=== PATIENT | female | born 1970 | race Caucasian/White ===

== ENCOUNTER 2024-10-23 08:45 | Observation (INO) ==
--- NOTE | 2024-09-25 13:14 | PAT Medication Instructions ---
Medication Instructions Date of Service September 25, 2024 Home Medications Medication Instructions Recorded celecoxib 200 mg capsule 200 mg PO DAILY PRN pain #30 caps 04/11/24 nuvoflex 1 tab PO QAM celecoxib 200 mg capsule 200 mg PO DAILY PRN pain famotidine 20 mg tablet (Pepcid) 20 mg PO QAM Wiodwam 1 tab PO DAILY garlic 500 mg PO DAILY lidocaine 5 % topical ointment 1 applic topical DAILY knees multivitamin 1 tab PO DAILY brayden d arco 100 mg capsule 400 mg PO DAILY vitamin E 30 unit capsule 30 unit PO DAILY Continue as directed lidocaine 5 % topical ointment 1 applic topical DAILY knees (avoid placement near surgery site prior to surgery) ASK your surgeon for instructions celecoxib 200 mg capsule 200 mg PO DAILY PRN pain STOP taking 2 weeks before surgery (or as soon as possible if surgery is within 2 weeks) nuvoflex 1 tab PO QAM garlic 500 mg PO DAILY brayden d arco 100 mg capsule 400 mg PO DAILY vitamin E 30 unit capsule 30 unit PO DAILY DO NOT take the morning of surgery multivitamin 1 tab PO DAILY Take morning of surgery With a small sip of water, OTHERWISE NOTHING TO EAT OR DRINK AFTER MIDNIGHT: famotidine 20 mg tablet (Pepcid) 20 mg PO QAM Further instructions to be provided at PAT visit: Wiodwam 1 tab PO DAILY Other Notes If you have any questions please call us at [phone] or [phone] or [phone] or [phone]
--- NOTE | 2024-10-03 08:19 | Anesthesiology Consultation ---
Date of Service October 03, 2024 Assessment & Plan (1) Encounter for pre-operative examination: - Infectious disease screening: Per assessment on 10/03/24- No known recent infectious disease contacts or current infectious disease symptoms. - Outpatient joint assessment: Pt currently scheduled for inpatient pathway. If surgeon requests review for outpatient joint pathway, patient is not recommended candidate for outpatient joint program from anesthesia standpoint based on available information. - PCP visit (08/20/24): "For the right worse than left knee osteoarthritis you are to have surgery by Dr. Mulligan on October 23.. If you are EKG, chest x-ray, and blood work are normal there are no contraindications to proceeding with surgery .. You find that lidocaine cream helps your knee pain. I called in a prescription to the [facility] pharmacy.. Stop the Celebrex a week before your surgery. Also, do not take aspirin, Motrin, Advil, Aleve, ibuprofen, naproxen sodium, and other nonsteroidal anti-inflammatory or NSAID medications for a week before surgery. It is okay to take the acetaminophen or Tylenol 500 mg, 2 pills up to 3 times daily up till the time of surgery.. I would take the Pepcid or famotidine with a small sip of water the morning of surgery.. Ears are blocked with wax. Will have nursing flush them both out today." > Preop labs, EKG, CXR performed 10/03/24; unremarkable. Chart Review Chart Review: Acceptable Risk for Surgery and Patient seen in Pre Admission Testing Teaching & Discussion Pre-Anesthesia Teaching/Discussion Notes: Instructed NPO after midnight before surgery,except medications with 15 cc of water. Medication instructions provided according to the PAT guidelines. History Surgery Operation Date: 10/23/24 08:50 Proposed Procedures p Right Total Knee Arthroplasty - Audi Mulligan MD Height/Weight Height: 5 ft 2 in Weight: 90.6 kg Allergies Allergy/AdvReac Type Severity Reaction Status Date / Time amoxicillin [From Augmentin] AdvReac Severe Abdominal Verified 09/24/24 15:00 Pain clavulanic acid AdvReac Severe Abdominal Verified 09/24/24 15:00 [From Augmentin] Pain Medications Home Medications Medication Instructions Recorded Confirmed Last Taken nuvoflex 1 tab PO QAM 03/21/24 09/24/24 Unknown celecoxib 200 mg capsule 200 mg PO DAILY PRN pain #30 caps 04/11/24 09/24/24 U nknown famotidine 20 mg tablet (Pepcid) 20 mg PO QAM 08/20/24 09/24/24 Unknown garlic 500 mg PO DAILY 09/24/24 09/24/24 Unknown lidocaine 5 % topical ointment 1 applic topical DAILY knees 09/24/24 09/24/24 Unknown multivitamin 1 tab PO DAILY 09/24/24 09/24/24 Unknown brayden d arco 100 mg capsule 400 mg PO DAILY 09/24/24 09/24/24 Unknown vitamin E 30 unit capsule 30 unit PO DAILY 09/24/24 09/24/24 Unknown wild yam 1 tab PO DAILY 10/03/24 10/03/24 Unknown Past Medical History Medical History GERD (gastroesophageal reflux disease) "Sensitive stomach" especially with pain medications Osteoarthritis of knees, bilateral Otomycosis of right ear Treated, ENT monitoring Seizure Age 18 (none since), felt to be medication reaction No seizures since Exercise / Class Metabolic Activity III < 4 Walking/Shop/Light housework Past Surgical History Surgical History No pertinent past surgical history Past Anesthesia History No Hx of Anesthesia Complications and No Family Hx of Anesthesia Complications History of PONV No Hx of PONV and No Hx of Motion Sickness Social History Smoking Status: Never smoker Do You Dip or Chew Tobacco: No Hx Alcohol Use: No Hx Substance Use: No substance use type: does not use Review of Systems Patient denies chest pain, shortness of breath, fever, chills, cough, wheezing. Physical Exam Vital Signs BP 112/68 P 67 TEMP 97.8 SP02 95%RA RESP 18 Physical Decreased cervical extension range of motion. Full TMJ range of motion. TMD > 3.5 finger breaths Mallampati Score III Dentition: full upper/lower dentures Lungs: clear throughout to auscultation Cardiac: regular rate and rhythm, no murmurs noted Spine: normal Carotid arteries: negative bruit Extremities: non-pitting LE edema Short neck Lab Results Anesthesia Preop Results Results Anesthesia Widget: WBC 7.37 K/ul (4.8-10.8) 10/03/24 Hgb 14.4 g/dl (12.0-16.0) 10/03/24 Hct 42.4 % (37.0-47.0) 10/03/24 Plt 222 K/uL (130-400) 10/03/24 Na 140 mmol/L (136-145) 10/03/24 K 4.3 mmol/L (3.5-5.1) 10/03/24 Cl 105 mmol/L (98-107) 10/03/24 CO2 29 mmol/L (21-32) 10/03/24 BUN 14 mg/dl (6-23) 10/03/24 Creat 0.70 mg/dl (0.6-1.2) 10/03/24 Glucose Level 91 mg/dl (70-99(Fasting)) 10/03/24 PT 10.6 Seconds (9.0-12.0) 10/03/24 PTT 29 Seconds (21-31) 10/03/24 INR 1.0 (0.9-1.1) 10/03/24 Blood Type O Positive 10/03/24 Antibody Screen NEGATIVE 10/03/24 Testing Electrocardiogram Date: 10/03/24 NSR at 61bpm. "Normal ECG" Chest X-Ray Date: 10/03/24 Findings: The lungs are clear. The cardiomediastinal silhouette is within nor mal limits. No pleural effusion or pneumothorax. The heart size appears normal. No bony or soft tissue abnormality. Impression: Normal chest x-ray
--- NOTE | 2024-10-16 16:58 | History & Physical Report ---
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 Her disease has progressed markedly over the past year the fact that she is hardly getting around even with a cane. She would like to have her knees fixed. Plan will get and proceed with right knee replacement. The risks and benefits of this procedure were explained. Informed consent was obtained. Sustained hospital overnight and likely discharge postoperative day 1. Will use aspirin for DVT prophylaxis. (2) GERD (gastroesophageal reflux disease): (3) Seizure: History of Present Illness Chief Complaint: . Bilateral knee pain discomfort right side greater than left. Primary Care Provider: Ross Figueroa MD . The patient is a 54-year-old female [facility] patient from [place] who presents for treatment of her knees. About a 1 year history of markedly increasing bilateral knee pain discomfort has gotten quite a bit worse fairly quickly. He has been seen and treated with conservative management with minimal relief. Pain has become more more debilitating. She is resorted to using a cane to get around for the past couple months. No known injury. She is open to have her knees fixed. Allergies Allergy/AdvReac Type Severity Reaction Status Date / Time amoxicillin [From Augmentin] AdvReac Severe Abdominal Verified 09/24/24 15:00 Pain clavulanic acid AdvReac Severe Abdominal Verified 09/24/24 15:00 [From Augmentin] Pain Home Medications Medication Instructions Recorded Confirmed Type nuvoflex 1 tab PO QAM 03/21/24 09/24/24 History celecoxib 200 mg capsule 200 mg PO DAILY PRN pain #30 caps 04/11/24 09/24/24 Rx famotidine 20 mg tablet (Pepcid) 20 mg PO QAM 08/20/24 09/24/24 History garlic 500 mg PO DAILY 09/24/24 09/24/24 History lidocaine 5 % topical ointment 1 applic topical DAILY knees 09/24/24 09/24/24 History multivitamin 1 tab PO DAILY 09/24/24 09/24/24 History brayden d arco 100 mg capsule 400 mg PO DAILY 09/24/24 09/24/24 History vitamin E 30 unit capsule 30 unit PO DAILY 09/24/24 09/24/24 History wild yam 1 tab PO DAILY 10/03/24 10/03/24 History Past Med/Surg History Problem List Encounter for pre-operative examination Osteoarthritis of knees, bilateral Medical History GERD (gastroesophageal reflux disease) "Sensitive stomach" especially with pain medications Osteoarthritis of knees, bilateral Otomycosis of right ear Treated, ENT monitoring Seizure Age 18 (none since), felt to be medication reaction No seizures since Surgical History No pertinent past surgical history Social History Smoking Status: Never smoker Second Hand Exposure: No; Do You Dip or Chew Tobacco: No; Hx Alcohol Use: No Hx Substance Use: No Preferred Language: Greenlandic Communication Ability: Effective Visual Impairment: No Limitations Hearing Ability: Normal Water Conservation Specialist Required: No Beliefs That Will Affect Care: None Current Living Situation: Family Current Living Situation Comment: lives with sisters and dad Feels Safe at Home: Yes Diet: regular Assistive Devices: Denture - Upper, Denture - Lower and Glasses Review of Systems All systems reviewed & are unremarkable except as noted in HPI & below. Physical Exam . Physical examination reveals a pleasant middle-age female. She little looks a little bit older than her stated age. Examination of both knees reveal patient walks with a markedly antalgic gait. She walks keeping her knees fairly straight in kline when she walks. She uses a cane to ambulate. Examination of the right knee reveals neutral to slight varus alignment to her knee. Moderate soft tissue envelope. Range of motion 5 5-1 10. No instability. No pain with hip motion. Examination left knee reveals fairly neutral alignment. Moderate soft tissue envelope. Minimal knee effusion. Range of motion is 5-1 15. She is neurologically intact. Constitutional WD/WN, vitals as above Respiratory normal respiratory effort, lungs clear to auscultation Cardiovascular RRR, no murmur, no edema Gastrointestinal (Abdomen) normal bowel sounds, soft, nontender, no hepatosplenomegaly Results & Data Results & Data Laboratory Results . Diagnostic Findings . X-rays of both knees were reviewed. She has advanced bilateral knee DJD. 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 The right side is a bit worse than the left. PG Care Time/CCT Total # of Minutes Spent Total Time Spent with Patient: Total time spent is greater than 50% in coordination of care (as documented) at patient's floor/unit and/or counseling patient: Coding Level of Care Code None Diagnoses Osteoarthritis of knees, bilateral M17.0 GERD (gastroesophageal reflux disease) K21.9 Seizure R56.9
[~2024-10-23 08:45] MED LIST: BUPIVACAINE 0.5 % 5 MG/1 ML PF 10ML VIAL ONE; ROPIVACAINE 0.5% 5 MG/ML 30 ML VIAL ONE
--- NOTE | 2024-10-23 09:01 | History & Physical Bridge Note ---
Date of Service October 23, 2024 History & Physical Bridge Note I have examined the patient, reviewed the History & Physical and in the interval since the performance of the History & Physical I have noted the following changes of clinical significance: no changes noted
[2024-10-23] MEDS: LR 15ML/HR IV SCH (09:18)
[2024-10-23] MEDS: CeleBREX 200 MG CAP PO SCH (09:19)
[2024-10-23] MEDS: FAMOTIDINE 20 MG TAB PO SCH (09:19)
[2024-10-23] MEDS: dexAMETHasone**PF** 10 MG/ML VIAL IV SCH (09:19)
[2024-10-23] MEDS: ACETAMINOPHEN 500 MG TAB PO SCH ×2 (09:19→15:43)
[2024-10-23] MEDS: METOCLOPRAMIDE HCL 10 MG TABLET PO SCH (09:20)
[2024-10-23] MEDS: LR 500ML BOLUS, THEN 15ML/HR IV SCH (09:20)
[2024-10-23] MEDS ORDERED: MIDAZOLAM HCL 1 MG/ML 2ML VIAL ONE ×2 (10:44→12:19)
[2024-10-23] MEDS ORDERED: fentaNYL citrate PF 100 MCG/2 ML VIAL ONE (10:44)
[2024-10-23] MEDS: ceFAZolin 2000MG 2,000 MG/15 ML SYR IV SCH ×2 (11:37→20:43)
[2024-10-23] MEDS ORDERED: PROPOFOL IV EMULSION 10 MG/ML 20 ML VIAL IV ONE (12:10)
[2024-10-23] MEDS ORDERED: ePHEDrine sulfate 50 MG/5 ML SYR ONE (12:10)
[2024-10-23] MEDS: ORTHO JOINT ANESTHETIC ONE (12:14)
[2024-10-23] MEDS: ROPIV 0.5% 246mg, Ketorolac 30mg, EPINEPHrine 0.5mg in NSS INFIL SCH (12:14)
[2024-10-23] MEDS: TRANEXAMIC ACID 1,000 MG **IV Intra-op IV SCH (12:28)
--- NOTE | 2024-10-23 13:27 | Operative Report ---
PG Post Operative Report Pre & Post Diagnosis Operation Date: 10/23/24 10:40 Pre-Op Diagnosis: Right Knee Osteoarthritis Post-Op Diagnosis: Right Knee Osteoarthritis I identified the patient and participated in the time-out.: Yes Procedure Operation Date: 10/23/24 10:40 Actual Procedures p Right Total Knee Arthroplasty(Right) - Audi Mulligan MD Surgeon Audi Mulligan MD Web Site Administrator Blas Garcia PA-C Estimated Blood Loss 50 Findings Consistent with Post-Op Diagnosis Operative findings were advanced right knee DJD. She had extensive grade 4 [id number] disease in all 3 compartments most severe medially. It did looks like she had significant a vast necrosis and collapse of her medial femoral condyle. Very stiff knee preoperatively with a flexion contracture of about 10 degrees and only bent about 85. Specimens Right knee sent for pathology. Anesthesia Type Spinal MAC Complications none Disposition Accompanied Patient To Recovery: No Indications The patient is a 54-year-old [employer] female who has a several year history of increasing right knee pain and discomfort that got markedly worse over the past year. She failed all conservative measures. X-rays show advanced bilateral knee DJD. She would like proceed with surgical treatment. Description of Procedure Operative implants consist of: 1. Biomet Vanguard size 65 right posterior stabilized femoral component. 2. Biomet size 67 tibial tray. 3. 10 mm posterior stabilized polyethylene insert. 4. 31 x 8 all poly patella. The patient was taken to the operating, identified, placed on the operating table in the supine position. All contact areas were appropriately padded. IV antibiotics arrived by anesthesia team. Spinal anesthetic and adductor canal block had been Weida in the holding area. A Sandy catheter was placed in sterile fashion. A right thigh tourniquet was then placed. The right lower extremity was then prepped and draped in usual sterile fashion. The right leg was elevated and exsanguinated with use of an Esmarch and a turn was placed at 300 mmHg. An anterior approach of the right knee was then performed to longitudinal incision centered over the patella. Sharp dissection was carried through subcutaneous tissue down the extensor mechanism. A medial parapatellar arthrotomy incision was made. Some subperiosteal dissection was carried out medially. The fat pad was dissected from the patella tendon. The lateral patellofemoral ligament was released. Patella subluxated laterally and the knee was flexed. The osteophytes taken off distal femur. The ACL and PCL then released from the distal femur and the tibia subluxated anteriorly. The external treatment LYMErix then placed on the anterior face of the tibia and adjusted 14 mm medially. Proximal tibial cut was made remove about a millimeter bone from the medial side. Some osteophytes taken off medially. The tibia sized to a size 67. Attention drawn the femur. The distal femur examined with a sharp drill. Intramedullary canal was suction. The right 5 degree valgus cutting guide was placed. The distal femoral cutting block was pinned in place. This femoral cut was made to take an additional 3 mm of bone off distal femur. The femur was then sized to a size 65. The AP cutting block was pinned parallel to the epicondylar axis which was 3 degrees of external rotation. Anterior cut, anterior chamfer, posterior cut, posterior chamfer cuts were made. The box cutting guide was placed and just slightly lateral and the box cut was made. The knee was flexed. The remnants of the medial and lateral menisci were excised. The osteophytes were taken off the posterior aspect of the femur. A trial femoral component was placed. The tibial tray was pinned in Rachel external rotation and the drill and stem punch were used to create defect in proximal tibia for the tibial tray. The knee was then trialed and the 10 mm insert fit most appropriately. Attention drawn the patella. The patella was cleaned of all soft tissues. Patella thickness measured by 18 mm in thickness was cut down to 13. Was sized to a size 31 patella. The lug holes were drilled for 31 patella. The lateral osteophytes removed. Patella button was placed. Knee was taken through range of motion and patella tracked nicely with no thumbs test. Attention drawn to placement permanent components. NuPrep all trial components were removed. A bone plug was placed into the distal femur limb of blood loss. A double batch Palacos G cement was mixed. A Biomet Vanguard size 65 right posterior stabilized femoral component, size 67 tibial tray, a 10 mm posterior stabilized polyethylene insert, and a 31 x 8 all poly patella then cemented in place. The knee was brought out into full extension till cement hardened. Final cement check was then performed. The pericapsular tissues were injected with total 100 cc of Ortho mix. The patient did receive 1 g tranexamic acid. The tourniquet was then let down for final tourniquet time 55 minutes. Hemostasis surgeries electrocautery. Extensor Metros then closed with combination 1 PDS suture #1 Vicryl suture in [id number] fashion. Extensor Meclomen checked found to be intact. Subcutaneous tissue then closed with 2 Dexon suture in a buried interrupted fashion skin was closed skin rhianna. Leg was then cleaned and dried and sterile dressed with Xeroform, 4 fours, sterile cast padding, Hardeep bandage were applied. The patient then transferred to the recovery room in stable condition. The patient tolerated procedure well and there were no complications. Blas Garcia, my physician portfolio assistant, was present for the entire procedure. His assistance was essential and required for appropriate patient positioning, prepping and draping, surgical exposure, performing the technical details of the operation, placement the implants, closure of the wound, and placement of the sterile bandage. I attest to the content of the Intraoperative Record and any orders documented therein. Any exceptions are noted below.
--- NOTE | 2024-10-23 13:36 | XRay Report ---
XR knee RT 1 or 2V routine CLINICAL HISTORY: Surgical Post Op COMPARISON: None FINDINGS: Right knee prosthesis shows no hardware complication. There is expected soft tissue gas. S kin rhianna are present. IMPRESSION: Unremarkable postoperative exam. ACT 112: Negative or not required by law. Electronically signed by: Johnny Hernandez M.D. 10/23/2024 1:35 PM
--- NOTE | 2024-10-23 13:50 | Anesthesiology Progress Note ---
Date of Service October 23, 2024 Anesthesia Post Procedure Vital Signs Vital Signs: Temp Pulse Resp BP Pulse Ox O2 Del Method 10/23/24 13:40 70 16 124/60 92 Room Air 10/23/24 13:30 71 15 121/67 96 Room Air 10/23/24 13:21 36.1 C L 82 16 124/63 99 Room Air 10/23/24 09:08 37.1 C 73 20 132/93 97 Room Air Notes Mental Status: alert / awake / arousable Patient Amnestic to Procedure: Yes Nausea / Vomiting: adequately controlled Pain: adequately controlled Airway Patency, RR, SpO2: stable & adequate BP & HR: stable & adequate Hydration State: stable & adequate Neuraxial Anesthesia: was administered and sensory block is resolving Anesthetic Complications: no major complications apparent
[2024-10-23] MEDS ORDERED: ALUMINUM/MAGNESIUM SUSP 30 ML UDC PO PRN (14:20)
[2024-10-23] MEDS ORDERED: oxyCODONE HCL IR 5 MG TAB (IMMEDIATE RELEASE) PO PRN (14:20)
[2024-10-23] MEDS ORDERED: NALOXONE HCL 0.4 MG/1 ML VIAL/CARP IV PRN (14:20)
[2024-10-23] MEDS ORDERED: MAGNESIUM HYDROXIDE SUSP 30 ML UDC PO PRN (14:20)
[2024-10-23] MEDS ORDERED: bisacodyL 10 MG SUPP PR PRN (14:20)
[2024-10-23] MEDS ORDERED: METOCLOPRAMIDE HCL INJ 5 MG/ML 2 ML VIAL IV PRN (14:20)
[2024-10-23] MEDS ORDERED: diphenhydrAMINE Capsule 25 MG CAP PO PRN (14:20)
[2024-10-23] MEDS ORDERED: HYDROmorphone INJ 0.5 MG/0.5 ML SYR IV PRN (14:20)
[2024-10-23] MEDS ORDERED: ONDANSETRON INJ 2 MG/ML 2 ML VIAL IV PRN (14:20)
[2024-10-23] MEDS: SODIUM CHLORIDE 0.9% 1,000 ML IV SCH (14:48)
[2024-10-23] MEDS: KETOROLAC 30 MG/ML VIAL IV SCH (15:44)
[2024-10-23] MEDS: ASCORBIC ACID 500 MG TAB PO SCH (17:28)
[2024-10-23] MEDS: TRANEXAMIC ACID / 0.7% NACL 1,000 MG/100 ML BAG IV SCH (20:43)
[2024-10-23] MEDS: DOCUSATE SODIUM 100 MG CAP PO SCH (20:43)
[2024-10-23] MEDS: SENNA 8.6 MG TAB PO SCH (20:44)
[2024-10-23] MEDS: ASPIRIN 81 MG ECTAB PO SCH (20:44)
[2024-10-23] MEDS ORDERED: SENNA 8.6 MG TAB PO SCH (21:00)
[2024-10-24 05:54] LABS: Hematocrit (blood only) 38.2 % (37.0-47.0); Mean Corpuscular Hemoglobin 29.8 pg (25.0-34.0); Mean Corpuscular Volume 87.6 fL (80.0-100.0); Mean Platelet Volume 10.3 fL (9.4-12.4); Platelet Count 260 K/uL (130-400); RDW Coefficient of Variation 12.1 % (11.5-14.5); RDW Standard Deviation 38.7 fL (36.4-46.3); Red Blood Count 4.36 M/uL (4.20-5.40); White Blood Count 15.74 K/ul (4.8-10.8)
[2024-10-24 06:12] LABS: BUN Creatinine Ratio 23.3 (10-20); Calcium 8.4 mg/dl (8.6-10.3); Creatinine Clr Calc Pharmacy 61.1 ml/min; Potassium 4.1 mmol/L (3.5-5.1)
[2024-10-24 07:14] VITALS: BP 104/65; PULSE 70; RESP 16; TEMP 97.5; O2SAT 97
--- NOTE | 2024-10-24 08:27 | Orthopedic Progress Note ---
Date of Service October 24, 2024 Assessment & Plan (1) Status post total right knee replacement: * Continue Current Treatment * Disposition: home * Daily treatment: Physical Therapy/ Occupational Therapy per protocol * Weight bearing status: WBAT * Continue to monitor for ABLA * Pain control * DVT prophylaxis, ASA * Office/hospital f/u 2 weeks for progress check and staple/suture removal * Plan for discharge today pending PT/OT clearance Subjective .Active Problems: S/p right TKA 54 y/o female s/p right TKA. Doing well overall, pain managed and improved function. Denies fever/chills, chest pain/SOB, nausea/vomiting. Otherwise no complaints. Review of Systems All systems reviewed & are unremarkable except as noted in HPI & below. Physical Exam . right knee surgical dressing CDI, not removed for exam. Otherwise no obvious deformity or overlying skin changes RLE. Diffuse TTP distal thigh and knee region. Otherwise no specific tenderness of proximal thigh, lower leg, foot/ankle. AROM knee flexion 0-100 degrees. AROM foot/ankle intact. Sensation intact plantar/dorsal foot. Brisk capillary refill. Results & Data Results & Data Laboratory Results . Diagnostic Findings . Knee X-Ray 10/23/24 13:20 XR knee RT 1 or 2V routine CLINICAL HISTORY: Surgical Post Op COMPARISON: None FINDINGS: Right knee prosthesis shows no hardware complication. There is expe cted soft tissue gas. Skin rhianna are present. IMPRESSION: Unremarkable postoperative exam. ACT 112: Negative or not required by law. Electronically signed by: Johnny Hernandez M.D. 10/23/2024 1:35 PM PG Care Time/CCT Total # of Minutes Spent Total Time Spent with Patient: Total time spent is greater than 50% in coordination of care (as documented) at patient's floor/unit and/or counseling patient: Coding Level of Care Code 00972 Post Operative Follow-Up Diagnoses Status post total right knee replacement Z96.651
[2024-10-24] MEDS: dexAMETHasone 10 MG in SYRINGE 0 ML IV SCH (08:59)
[2024-10-24] MEDS: MULTIVITAMIN TAB PO SCH (09:00)
[2024-10-24] MEDS ORDERED: NON-FORMULARY MEDICATION (Garlic Capsule) PO SCH (09:00)
[2024-10-24] MEDS ORDERED: PAU D ARCO PO SCH (09:00)
[2024-10-24] MEDS: FAMOTIDINE 20 MG TAB PO SCH (09:00)
[2024-10-24] MEDS: TOCOPHERYL, DL-ALPHA 100 UNITS 45 MG CAP PO SCH (09:00)
[2024-10-24] MEDS ORDERED: NON-FORMULARY MEDICATION (Multivitamin Tablet) PO SCH (09:00)
[2024-10-24] MEDS ORDERED: [UNRECOGNIZED DRUG - OTHER] PO SCH (09:00)
[2024-10-24] MEDS ORDERED: [UNRECOGNIZED DRUG - OTHER] PO SCH (09:00)
[2024-10-24] MEDS: LIDOCAINE 5% OINT 30 GM TUBE TOP SCH (09:00)
== END 2024-10-24 12:55 | disposition home health service (06) ==
LOC: 3E 08:45 → ASU 08:45

== ENCOUNTER 2025-02-12 11:12 | Observation (INO) ==
--- NOTE | 2025-01-16 12:58 | PAT Medication Instructions ---
Medication Instructions Date of Service January 16, 2025 Home Medications Medication Instructions Recorded celecoxib 200 mg capsule 200 mg PO BID PRN pain #60 caps 11/26/24 nuvoflex 1 tab PO QAM famotidine 20 mg tablet (Pepcid) 20 mg PO QAM garlic 500 mg PO DAILY lidocaine 5 % topical ointment 1 applic topical DAILY knees multivitamin 1 tab PO DAILY brayden d arco 100 mg capsule 400 mg PO DAILY vitamin E 30 unit capsule 30 unit PO DAILY wild yam 1 tab PO DAILY celecoxib 200 mg capsule 200 mg PO BID PRN pain fish, borage, flaxseed oils-omega 3,6,9 comb no.1 1,200 mg capsule (Hanska 3-6-9) 1 cap PO QPM ASK your surgeon for instructions celecoxib 200 mg capsule 200 mg PO BID PRN pain STOP taking 2 weeks before surgery (or as soon as possible if surgery is within 2 weeks) nuvoflex 1 tab PO QAM garlic 500 mg PO DAILY brayden d arco 100 mg capsule 400 mg PO DAILY vitamin E 30 unit capsule 30 unit PO DAILY wild yam 1 tab PO DAILY fish, borage, flaxseed oils-omega 3,6,9 comb no.1 1,200 mg capsule (Hanska 3-6-9) 1 cap PO QPM STOP taking 24 hours before surgery lidocaine 5 % topical ointment 1 applic topical DAILY knees DO NOT take the morning of surgery multivitamin 1 tab PO DAILY Take morning of surgery With a small sip of water, OTHERWISE NOTHING TO EAT OR DRINK AFTER MIDNIGHT: famotidine 20 mg tablet (Pepcid) 20 mg PO QAM Other Notes If you have any questions please call us at [phone] or [phone] or [phone] or [phone]
--- NOTE | 2025-01-22 08:31 | Anesthesiology Consultation ---
Date of Service January 22, 2025 Assessment & Plan (1) Encounter for pre-operative examination: - Check test DOS - Infectious disease screening: Per assessment on 01/22/25- No known recent infectious disease contacts or current infectious disease symptoms. - Outpatient joint assessment: Pt currently scheduled for inpatient pathway. If surgeon requests review for outpatient joint pathway, patient is not a recommended candidate for outpatient joint program from anesthesia standpoint based on available information. - PCP visit (08/20/24): "For the right worse than left knee osteoarthritis you are to have surgery by Dr. Mulligan on October 23.. If you are EKG, chest x-ray, and blood work are normal there are no contraindications to proceeding with surgery.. You find that lidocaine cream helps your knee pain. I called in a prescription to the the [facility].. Stop the Celebrex a week before your surgery. Also, do not take aspirin, Motrin, Advil, Aleve, ibuprofen, naproxen sodium, and other nonsteroidal anti-inflammatory or NSAID medications for a week before surgery. It is okay to take the acetaminophen or Tylenol 500 mg, 2 pills up to 3 times daily up till the time of surgery.. I would take the Pepcid or famotidine with a small sip of water the morning of surgery.. Ears are blocked with wax. Will have nursing flush them both out today." > Preop labs, EKG, CXR performed 10/03/24; unremarkable. - S/P Right TKA (10/23/24): SAB at L3-4 (1 attempt) + regional, [facility]. No issues noted per post-op anesthesia progress note. Chart Review Chart Review: Acceptable Risk for Surgery and Patient seen in Pre Admission Testing Teaching & Discussion Pre-Anesthesia Teaching/Discussion Notes: Instructed NPO after midnight before surgery,except medications with 15 cc of water. Medication instructions p rovided according to the PAT guidelines. History Surgery Operation Date: 02/12/25 10:40 Proposed Procedures p Left Total Knee Arthroplasty - Audi Mulligan MD Height/Weight Height: 5 ft 2 in Weight: 93.3 kg Allergies Allergy/AdvReac Type Severity Reaction Status Date / Time amoxicillin [From Augmentin] AdvReac Severe Abdominal Verified 01/15/25 15:07 Pain clavulanic acid AdvReac Severe Abdominal Verified 01/15/25 15:07 [From Augmentin] Pain Medications Home Medications Medication Instructions Recorded Confirmed Last Taken nuvoflex 1 tab PO QAM 03/21/24 01/15/25 10/09/24 famotidine 20 mg tablet (Pepcid) 20 mg PO QAM 08/20/24 01/15/25 10/23/24 05:30 garlic 500 mg PO DAILY 09/24/24 01/15/25 10/09/24 lidocaine 5 % topical ointment 1 applic topical DAILY knees 09/24/24 01/15/25 10/21/24 multivitamin 1 tab PO DAILY 09/24/24 01/15/25 10/09/24 brayden d arco 100 mg capsule 400 mg PO DAILY 09/24/24 01/15/25 10/09/24 vitamin E 30 unit capsule 30 unit PO DAILY 09/24/24 01/15/25 10/09/24 wild yam 1 tab PO DAILY 10/03/24 01/15/25 10/09/24 celecoxib 200 mg capsule 200 mg PO BID PRN pain #60 caps 11/26/24 01/15/25 Unknown fish, borage, flaxseed oils-omega 1 cap PO QPM 01/15/25 01/15/25 Unknown 3,6,9 comb no.1 1,200 mg capsule ([place] 3-6-9) Past Medical History Medical History GERD (gastroesophageal reflux disease) "Sensitive stomach" especially with pain medications Osteoarthritis of knees, bilateral Otomycosis of right ear Treated, ENT monitoring PRN drops (not currently using per patient) Seizure Age 18 (none since), felt to be medication reaction No seizures since Exercise / Class Metabolic Activity III < 4 Walking/Shop/Light housework Past Family History Family History Sister Family history of reaction to anesthesia nausea/vomiting Past Surgical History Surgical History History of total right knee replacement (10/23/24) SAB at L3-4 (1 attempt) + regional, [facility] Past Anesthesia History No Hx of Anesthesia Complications and No Family Hx of Anesthesia Complications (except sister with PONV) History of PONV No Hx of PONV and No Hx of Motion Sickness Social History Smoking Status: Never smoker Do You Dip or Chew Tobacco: No Hx Alcohol Use: No Hx Substance Use: No substance use type: does not use Review of Systems Patient denies chest pain, shortness of breath, fever, chills, cough, wheezing, palpitations. Physical Exam Vital Signs BP 110/68 P 73 TEMP 98.2 SP02 97%RA RESP 16 Physical Decreased cervical extension range of motion. Full TMJ range of motion. TMD > 3.5 finger breaths Mallampati Score III Dentition: upper/lower full dentures Lungs: clear throughout to auscultation Cardiac: regular rate and rhythm, no murmurs noted Spine: normal Carotid arteries: negative bruit Extremities: trace non-pitting LE edema Lab Results Anesthesia Preop Results Results Anesthesia Widget: WBC 6.50 K/ul (4.8-10.8) 01/22/25 Hgb 14.3 g/dl (12.0-16.0) 01/22/25 Hct 41.6 % (37.0-47.0) 01/22/25 Plt 228 K/uL (130-400) 01/22/25 Na 139 mmol/L (136-145) 01/22/25 K 4.2 mmol/L (3.5-5.1) 01/22/25 Cl 104 mmol/L (98-107) 01/22/25 CO2 30 mmol/L (21-32) 01/22/25 BUN 16 mg/dl (6-23) 01/22/25 Creat 0.58 mg/dl (0.6-1.2) L 01/22/25 Glucose Level 89 mg/dl (70-99(Fasting)) 01/22/25 PT 10.7 Seconds (9.0-12.0) 01/22/25 PTT 30 Seconds (21-31) 01/22/25 INR 1.0 (0.9-1.1) 01/22/25 Blood Type O Positive 01/22/25 Antibody Screen NEGATIVE 01/22/25 Testing Electrocardiogram Date: 10/03/24 NSR at 61bpm. "Normal ECG" Chest X-Ray Date: 10/03/24 Findings: The lungs are clear. The cardiomediastinal silhouette is within normal limits. No pleural effusion or pneumothorax. The heart size appears normal. No bony or soft tissue abnormality. Impression: Normal chest x-ray
--- NOTE | 2025-02-06 20:21 | History & Physical Report ---
Date of Service February 06, 2025 Assessment & Plan (1) Osteoarthritis of left knee: 54-year-old [facility] patient 3-1/2 months out from right knee replaced with advanced left knee DJD. Very happy with the right knee. She is limited by left knee. She is failing conservative measures would like to proceed with left knee replacement. Plan: Take her to the operating room due to left total knee replacement. The risks met this procedure explained. Informed consent was obtained. He is keiry plan to stay in the hospital overnight likely discharge postoperative day 1. She will have home health and then outpatient therapy as needed. Will use aspirin for DVT prophylaxis. (2) History of total right knee replacement: (3) GERD (gastroesophageal reflux disease): History of Present Illness Chief Complaint: . Persistent left knee pain discomfort and stiffness. Primary Care Provider: Ross Figueroa MD . The patient is a 54-year-old female who presents for follow-up of her knees. She is now about 3-1/2 months out from right knee replacement doing well. She continues to be bothered by left knee pain discomfort and stiffness. As she become more active the left knee is bothering more. Is diffuse global pain. The more she is up and about the more it hurts. She like to proceed with a left knee replacement. Allergies Allergy/AdvReac Type Severity Reaction Status Date / Time amoxicillin [From Augmentin] AdvReac Severe Abdominal Verified 01/15/25 15:07 Pain clavulanic acid AdvReac Severe Abdominal Verified 01/15/25 15:07 [From Augmentin] Pain Home Medications Medication Instructions Recorded Confirmed Type nuvoflex 1 tab PO QAM 03/21/24 01/15/25 History famotidine 20 mg tablet (Pepcid) 20 mg PO QAM 08/20/24 01/15/25 History garlic 500 mg PO DAILY 09/24/24 01/15/25 History lidocaine 5 % topical ointment 1 applic topical DAILY knees 09/24/24 01/15/25 History multivitamin 1 tab PO DAILY 09/24/24 01/15/25 History brayden d arco 100 mg capsule 400 mg PO DAILY 09/24/24 01/15/25 History vitamin E 30 unit capsule 30 unit PO DAILY 09/24/24 01/15/25 History wild yam 1 tab PO DAILY 10/03/24 01/15/25 History celecoxib 200 mg capsule 200 mg PO BID PRN pain #60 caps 11/26/24 01/15/25 Rx fish, borage, flaxseed oils-omega 1 cap PO QPM 01/15/25 01/15/25 History 3,6,9 comb no.1 1,200 mg capsule ([place] 3-6-9) Past Med/Surg History Problem List Encounter for pre-operative examination Osteoarthritis of knees, bilateral Medical History GERD (gastroesophageal reflux disease) "Sensitive stomach" especially with pain medications Osteoarthritis of knees, bilateral Otomycosis of right ear Treated, ENT monitoring PRN drops (not currently using per patient) Seizure Age 18 (none since), felt to be medication reaction No seizures since Surgical History History of total right knee replacement (10/23/24) SAB at L3-4 (1 attempt) + [facility] Family History Sister Family history of reaction to anesthesia nausea/vomiting Social History Smoking Status: Never smoker Second Hand Exposure: No; Do You Dip or Chew Tobacco: No; Hx Alcohol Use: No Hx Substance Use: No Preferred Language: Lebanese Communication Ability: Effective Visual Impairment: No Limitations Hearing Ability: Normal Palliative Medicine Physician Required: No Beliefs That Will Affect Care: None Current Living Situation: Family Current Living Situation Comment: lives with sisters and dad Feels Safe at Home: Yes Diet: regular Assistive Devices: Denture - Upper, Denture - Lower and Glasses Review of Systems All systems reviewed & are unremarkable except as noted in HPI & below. Physical Exam . Physical examination is a pleasant middle-age female. Looks little bit older than her stated age. Examination of the knees reveal patient walks with a bit of a waddling gait. Examination of the left knee reveals varus alignment to her knee. She got bony perching medially. She tender over the medial joint line. Range of motion 0 about 110. No instability. No pain with hip motion. Examination of the right knee reveals a well-healed incision. Range of motion is 0 to about 115. Good straight leg raise. No pain with hip motion. Constitutional WD/WN, vitals as above Respiratory normal respiratory effort, lungs clear to auscultation Cardiovascular RRR, no murmur, no edema Gastrointestinal (Abdomen) normal bowel sounds, soft, nontender, no hepatosplenomegaly Results & Data Results & Data Laboratory Results . Diagnostic Findings . X-rays of both knees were reviewed. To the left knee shows advanced knee DJD. Complete loss of medial femoral condyle. She may have some AVN of the medial femoral condyle. The right knee replaced looks in good position without problems. PG Care Time/CCT Total # of Minutes Spent Total Time Spent with Patient: Total time spent is greater than 50% in coordination of care (as documented) at patient's floor/unit and/or counseling patient: Coding Level of Care Code None Diagnoses Osteoarthritis of left knee M17.12 History of total right knee replacement Z96.651 GERD (gastroesophageal reflux disease) K21.9
[~2025-02-12 11:12] MED LIST changes: +BUPIVACAINE 0.25% PF 30 ML VIAL ONE; -ROPIVACAINE 0.5% 5 MG/ML 30 ML VIAL ONE
[2025-02-12] MEDS: LR 60ML/HR IV SCH (11:20)
[2025-02-12] MEDS: CeleBREX 200 MG CAP PO SCH (11:20)
[2025-02-12] MEDS: FAMOTIDINE 20 MG TAB PO SCH (11:20)
[2025-02-12] MEDS: METOCLOPRAMIDE HCL 10 MG TABLET PO SCH (11:20)
[2025-02-12] MEDS: ACETAMINOPHEN 500 MG TAB PO SCH ×2 (11:20→20:22)
--- NOTE | 2025-02-12 11:29 | History & Physical Bridge Note ---
Date of Service February 12, 2025 History & Physical Bridge Note I have examined the patient, reviewed the History & Physical and in the interval since the performance of the History & Physical I have noted the following changes of clinical significance: no changes noted
[2025-02-12] MEDS ORDERED: LIDOCAINE 2% 2 ML VIAL/AMP(20MG/ML) INFIL ONE (12:13)
[2025-02-12] MEDS ORDERED: MIDAZOLAM HCL 1 MG/ML 2ML VIAL ONE (12:13)
[2025-02-12] MEDS ORDERED: PROPOFOL IV EMULSION 10 MG/ML 100 ML VIAL IV ONE ×2 (12:13→14:26)
[2025-02-12] MEDS: LR 500ML BOLUS, THEN 15ML/HR IV SCH (12:18)
[2025-02-12] MEDS: dexAMETHasone**PF** 10 MG/ML VIAL IV SCH (12:20)
[2025-02-12] MEDS ORDERED: ONDANSETRON INJ 2 MG/ML 2 ML VIAL IV PRN ×2 (13:06→17:00)
[2025-02-12] MEDS ORDERED: ATROPINE SULFATE 0.1 MG/ML 10ML SYR IV PRN (13:06)
[2025-02-12] MEDS: ORTHO JOINT ANESTHETIC ONE (14:31)
[2025-02-12] MEDS: ROPIV 0.5% 246mg, Ketorolac 30mg, EPINEPHrine 0.5mg in NSS INFIL SCH (14:31)
--- NOTE | 2025-02-12 16:01 | Operative Report ---
PG Post Operative Report Pre & Post Diagnosis Operation Date: 02/12/25 12:30 Pre-Op Diagnosis: Left Knee Osteoarhtritis Post-Op Diagnosis: Left Knee Osteoarhtritis I identified the patient and participated in the time-out.: Yes Procedure Operation Date: 02/12/25 12:30 Actual Procedures p Left Total Knee Arthroplasty(Left) - Audi Mulligan MD Surgeon Audi Mulligan MD Health Care Analyst Jaydon Noriega PA-C Estimated Blood Loss 50 Findings Consistent with Post-Op Diagnosis Specimens Left knee sent for pathology. Anesthesia Type Spinal MAC Complications none Disposition Accompanied Patient To Recovery: No Indications Patient is a 54-year-old female whose had a several history of increasing bilateral knee pain discomfort. She been through extensive conservative treatments became less successful over time. She had her right right knee replaced about 3-1/2 months ago and felt well with this. She continued to be limited by left knee pain discomfort and stiffness. She elected proceed with left total knee arthroplasty. Description of Procedure Operative implants consist of: 1. Biomet Vanguard size 65 left posterior stabilized femoral component. 2. Biomet size 67 tibial tray. 3. 10 mm posterior stabilized polyethylene insert. 4. 31 x 8 all poly patella. The patient was taken the op room, identified, placed on the operating table in the supine position. All contact areas were appropriately padded. IV antibiotics were provided by the anesthesia team. A spinal anesthetic and adductor canal block had been provided in the holding area. Sandy catheter was placed in sterile fashion. A left phytate was then placed in the left lower extremity was then prepped and draped in usual sterile fashion. The left leg was elevated and exsanguinated with use of an Esmarch and a t ourniquet placed at 300 mmHg. An anterior approach to the left knee was then performed to longitudinal incision centered over the patella. Sharp dissection was Through subcutaneous tissue down to the extensor mechanism. A medial parapatellar arthrotomy incision was made. Some subperiosteal dissection was carried out medially. The fat pad was resected from the patella tendon. The lateral patellofemoral ligament was released. Patella subluxated laterally knee was flexed. The osteophytes taken off distal femur. The ACL and PCL were then released from the distal femur and the tibia subluxated anteriorly. The external tibial alignment jig was then placed on the anterior face of the tibia and just about 14 mm medially. The proximal tibial cut was made remove 5 mm of bone from medial side. Some osteophytes taken off medially. Tibia sized to a size 67. Attention drawn the femur. The distal femur was then with a sharp drill. Intramedullary canal was suction. A left 5 degree valgus cutting guide was placed. The distal femoral cutting block was pinned in place. The distal femoral cut was made take an additional 3 mm of bone off distal femur. The femur was then sized to a size 65. The AP cutting block was pinned parallel to the epicondylar axis which was 4 degrees of external rotation. Anterior cut, anterior chamfer, posterior cut, posterior chamfer cuts were made. The box cutting guide was placed into just slight lateral box cut was made. The knee was flexed. The remnants of the medial and lateral menisci were excised. The osteophytes taken off the posterior aspect of femur. A trial femoral component was placed. The tibial tray was pinned in Rachel external rotation and the drill and stem punch were used to create defect from proximal tibia to the tibial tray. The knee was then trialed and the 10 mm insert fit most appropriately. Attention drawn the patella. The patella was cleaned of all soft tissues. Patella thickness measured 18 mm in thickness was cut down to 13. Was sized to a size 31 patella. The lug holes were drilled for 31 patella. The lateral osteophyte was removed. The patella button was placed. Knee was taken through range of motion and the patella tracked nicely with no thumbs test. Attention jointer placed in permanent components. All trial components were removed. Bone plug was placed into distal femur limit blood loss. A double batch [place] G cement was mixed. A Biomet Vanguard size 65 left posterior stabilized femoral component, size 67 tibial tray, a 10 mm Po stabilized polyethylene insert, and a 31 x 8 all poly patella was then cemented in place. The knee was brought out in full extension till cement hardened. A final cement check was then performed. The pericapsular tissues were injected with total 100 cc of Ortho mix. The patient did receive 1 g tranexamic acid. The tourniquet was then let down for final tourniquet time 63 minutes. Hemostasis was electrocautery. The wound was once again irrigated. The extensor [place] closed with combination 1 PDS suture in a [id number] fashion. Extensor [place] checked firmly intact. Subcutaneous tissue then closed with 2 Dexon suture in a buried interrupted fashion skin was closed skin rhianna. The leg was then cleaned and dried and a sterile dressing with Xeroform, 4 fours, ABD pad, soft roll, Hardeep bandage was applied. The patient t hen transferred to the recovery room in stable condition. The patient tolerated procedure well and no complications. Jaydon Noriega, my physician assistant branch operations manager, was present for the entire procedure. His assistance was required for proper patient positioning, prepping and draping, surgical exposure, retraction, performed the technical details of the operation, placement of implants, closure of the incision site, placement of the postoperative sterile bandage. I attest to the content of the Intraoperative Record and any orders documented therein. Any exceptions are noted below.
--- NOTE | 2025-02-12 16:26 | XRay Report ---
History: Total knee arthroplasty Comparison: None Findings: There is no acute fracture or dislocation. Left total knee arthroplasty appears intact. Alignment is anatomic. Joint spaces are well maintained. Postoperative fluid and air is seen anterior to the knee. Impression: Total left knee arthroplasty is intact. Electronically signed by Fantasma Noriega 02-12-2025 4:26 PM
--- NOTE | 2025-02-12 16:28 | Anesthesiology Progress Note ---
Date of Service February 12, 2025 Anesthesia Post Procedure Vital Signs Vital Signs: Temp Pulse Pulse Resp BP Pulse Ox O2 Del Method 02/12/25 16:15 71 18 121/63 96 Oxymask 02/12/25 16:05 80 18 126/70 97 Oxymask 02/12/25 15:57 97.0 F L 86 17 117/66 95 Oxymask 02/12/25 11:12 98.1 F 74 20 140/78 97 Room Air O2 Flow Rate 02/12/25 16:15 2 02/12/25 16:05 4 02/12/25 15:57 8 02/12/25 11:12 Pain Intensity Left Knee: Pain Intensity: 6 Transfer of Care Handoff Completed per policy Notes Mental Status: alert / awake / arousable and participated in evaluation Patient Amnestic to Procedure: Yes Nausea / Vomiting: adequately controlled Pain: adequately controlled Airway Patency, RR, SpO2: stable & adequate BP & HR: stable & adequate Hydration State: stable & adequate Neuraxial Anesthesia: was administered and sensory block is resolving Anesthetic Complications: no major complications apparent and Pt Satisfied with anesthetic care
[2025-02-12] MEDS: SODIUM CHLORIDE 0.9% 1,000 ML IV SCH (17:00)
[2025-02-12] MEDS ORDERED: NALOXONE HCL 0.4 MG/1 ML VIAL/CARP IV PRN (17:00)
[2025-02-12] MEDS ORDERED: HYDROmorphone INJ 0.5 MG/0.5 ML SYR IV PRN (17:00)
[2025-02-12] MEDS ORDERED: MAGNESIUM HYDROXIDE SUSP 30 ML UDC PO PRN (17:00)
[2025-02-12] MEDS ORDERED: ALUMINUM/MAGNESIUM SUSP 30 ML UDC PO PRN (17:00)
[2025-02-12] MEDS ORDERED: METOCLOPRAMIDE HCL INJ 5 MG/ML 2 ML VIAL IV PRN (17:00)
[2025-02-12] MEDS ORDERED: diphenhydrAMINE Capsule 25 MG CAP PO PRN (17:00)
[2025-02-12] MEDS: KETOROLAC 30 MG/ML VIAL IV SCH (17:30)
[2025-02-12] MEDS: ASCORBIC ACID 500 MG TAB PO SCH (18:01)
[2025-02-12] MEDS: SENNA 8.6 MG TAB PO SCH (20:22)
[2025-02-12] MEDS: DOCUSATE SODIUM 100 MG CAP PO SCH (20:22)
[2025-02-12] MEDS: ASPIRIN 81 MG ECTAB PO SCH (20:23)
[2025-02-12] MEDS ORDERED: SENNA 8.6 MG TAB PO SCH (21:00)
[2025-02-12] MEDS: OMEGA-3 (PURIFIED FISH OIL) 1 GM CAP PO SCH (22:31)
[2025-02-12] MEDS: TRANEXAMIC ACID / 0.7% NACL 1,000 MG/100 ML BAG IV SCH (22:32)
[2025-02-13 06:59] LABS: Hematocrit (blood only) 38.8 % (37.0-47.0); Hemoglobin 13.1 g/dl (12.0-16.0); Mean Corpuscular Hemoglobin 28.6 pg (25.0-34.0); Mean Corpuscular Volume 84.7 fL (80.0-100.0); Platelet Count 246 K/uL (130-400); RDW Standard Deviation 37.8 fL (36.4-46.3); Red Blood Count 4.58 M/uL (4.20-5.40); White Blood Count 13.21 K/ul (4.8-10.8)
--- NOTE | 2025-02-13 07:49 | Orthopedic Progress Note ---
Date of Service February 13, 2025 Assessment & Plan (1) Status post total left knee replacement: * Continue Current Treatment * Disposition: home * Daily treatment: Physical Therapy/ Occupational Therapy per protocol * Weight bearing status: WBAT * Continue to monitor for ABLA * Pain control * DVT prophylaxis, ASA * Office/hospital f/u 2 weeks for progress check and staple/suture removal * Plan for discharge today pending PT/OT clearance Subjective .Active Problems: S/p left TKA POD 1 54 y/o female s/p left TKA. Doing well overall, pain managed and improved function. Denies fever/chills, chest pain/SOB, nausea/vomiting. Otherwise no complaints. Review of Systems All systems reviewed & are unremarkable except as noted in HPI & below. Physical Exam * General: Alert and oriented, no acute distress * Constitutional: well-developed, well-nourished. * Respiratory: Normal respiratory effort, no distress * Gastrointestinal: No tenderness to palpation, no rigidity or guarding. * Skin: No rash or lesion. * Neurologic: Grossly normal * Musculoskeletal: left knee surgical dressing CDI, not removed for exam. Otherwise no obvious deformity or overlying skin changes RLE. Diffuse TTP distal thigh and knee region. Otherwise no specific tenderness of proximal thigh, lower leg, foot/ankle. AROM knee flexion 80 degrees. AROM foot/ankle intact. Sensation intact plantar/dorsal foot. Brisk capillary refill. . Results & Data Results & Data Laboratory Results . Diagnostic Findings . Knee X-Ray 02/12/25 15:56 History: Total knee arthroplasty Comparison: None Findings: There is no acute fracture or dislocation. Left total knee arthroplasty appears intact. Alignment is anatomic. Joint spaces are well maintained. Postoperative fluid and air is seen anterior to the knee. Impression: Total left knee arthroplasty is intact. Electronically signed by Fantasma Noriega 02-12-2025 4:26 PM PG Care Time/CCT Total # of Minutes Spent Total Time Spent with Patient: Total time spent is greater than 50% in coordination of care (as documented) at patient's floor/unit and/or counseling patient: Coding Level of Care Code 13901 Post Operative Follow-Up Diagnoses Status post total left knee replacement Z96.652
[2025-02-13 07:58] LABS: Anion Gap 9 (3-11); Blood Urea Nitrogen 13 mg/dl (6-23); Calcium 8.7 mg/dl (8.6-10.3); Carbon Dioxide 24 mmol/L (21-32); Chloride 106 mmol/L (98-107); Creatinine Clr Calc Pharmacy 101.9 ml/min; Glucose 111 mg/dl (70-99(Fasting)); Sodium 139 mmol/L (136-145)
[2025-02-13] MEDS: dexAMETHasone 10 MG in SYRINGE 0 ML IV SCH (08:17)
[2025-02-13] MEDS: LIDOCAINE 5% OINT 30 GM TUBE TOP SCH (08:18)
[2025-02-13] MEDS: MULTIVITAMIN TAB PO SCH (08:18)
[2025-02-13] MEDS: FAMOTIDINE 20 MG TAB PO SCH (08:19)
[2025-02-13] MEDS ORDERED: NON-FORMULARY MEDICATION (Garlic Capsule) PO SCH (09:00)
[2025-02-13] MEDS ORDERED: NON-FORMULARY MEDICATION (Multivitamin Tablet) PO SCH (09:00)
[2025-02-13] MEDS ORDERED: [UNRECOGNIZED DRUG - OTHER] PO SCH (09:00)
[2025-02-13] MEDS ORDERED: [UNRECOGNIZED DRUG - OTHER] PO SCH (09:00)
[2025-02-13] MEDS ORDERED: PAU D ARCO PO SCH (09:00)
[2025-02-13] MEDS ORDERED: VITAMIN E PO SCH (09:00)
[2025-02-13 11:45] VITALS: BP 118/71; PULSE 66; RESP 16; TEMP 97.9; O2SAT 95
== END 2025-02-13 12:30 | disposition home health service (06) ==
LOC: ASU 11:12 → 3N 11:12